=== PATIENT | male | born 1995 | race Caucasian/White ===

== ENCOUNTER 2021-07-08 13:55 | Emergency (ER) | payer OTHER ==
[2021-07-08 14:57] LABS: HEMOGLOBIN 14.9 gm/dl (14.0-17.5); RED BLOOD COUNT 5.07 M/UL (4.20-5.50); WHITE BLOOD COUNT 9.3 K/UL (4.5-11.0)
[2021-07-08 15:17] LABS: BUN/CREATININE RATIO 18 (0-10)
[2021-07-08] MEDS ORDERED: KEPPRA500 MG PO (19:04)
== END 2021-07-08 19:20 | disposition home or self-care (01) ==
LOC: ER1 13:55
PROVIDERS: Emergency Medicine
DX: G40.909 Epilepsy, unspecified, not intractable, without status epilepticus (principal); R00.1 Bradycardia, unspecified; F17.290 Nicotine dependence, other tobacco product, uncomplicated; R91.1 Solitary pulmonary nodule
CPT/HCPCS: 70450; 71045; 71046; 71250; 80053; 80307; 81001; 85025; 93005; 96374; 99285; J1953